=== PATIENT | female | born 1960 | race Caucasian/White ===

== ENCOUNTER 2025-07-09 18:59 | Emergency (ER) | payer MEDICAID ==
[~2025-07-09] VITALS: Ht 170.2 cm; Wt 74.8 kg
[2025-07-09] MEDS ORDERED: ONDANSETRON 4 MG TAB.RAPDIS ONE (22:06)
[2025-07-09] MEDS ORDERED: IBUPROFEN 400 MG TABLET ONE (22:06)
[2025-07-09] MEDS: IBUPROFEN 400 MG TABLET PO ONE (22:11)
[2025-07-09] MEDS: ONDANSETRON 4 MG TAB.RAPDIS SL ONE (22:12)
[2025-07-10 04:32] VITALS: BP 125/81; TEMP 98.1; O2SAT 96
== END 2025-07-10 04:33 | disposition home or self-care (01) ==
LOC: ER 19:01
DX: F10.129 Alcohol abuse with intoxication, unspecified (principal); Z91.048 Other nonmedicinal substance allergy status; Z60.2 Problems related to living alone; Z79.899 Other long term (current) drug therapy; Y90.9 Presence of alcohol in blood, level not specified
CPT/HCPCS: 99285; 82962; Q0162